=== PATIENT | female | born 1990 | race Caucasian/White ===

== ENCOUNTER → 2024-05-24 09:39 | Outpatient (REF) | payer OTHER, SELFPAY | LOC: PNTC 09:39 | PROVIDERS: ATTENDING PHYSICIAN Obstetrics & Gynecology | DX: Z36.4 Encounter for antenatal screening for fetal growth retardation (principal) | CPT/HCPCS: 59025; 76815; 76820 ==

== ENCOUNTER → 2024-05-31 09:53 | Outpatient (REF) | payer OTHER, SELFPAY | LOC: PNTC 09:53 | PROVIDERS: ATTENDING PHYSICIAN Obstetrics & Gynecology | DX: O36.5910 Maternal care for other known or suspected poor fetal growth, first trimester, not applicable or unspecified (principal) | CPT/HCPCS: 59025; 76816; 76820 ==

== ENCOUNTER → 2024-06-07 09:25 | Outpatient (REF) | payer OTHER, SELFPAY | LOC: PNTC 09:25 | PROVIDERS: ATTENDING PHYSICIAN Obstetrics & Gynecology | DX: O36.5920 Maternal care for other known or suspected poor fetal growth, second trimester, not applicable or unspecified (principal) | CPT/HCPCS: 59025; 76815; 76820 ==

== ENCOUNTER → 2024-06-13 15:35 | Outpatient (REF) | payer OTHER, SELFPAY | LOC: PNTC 15:35 | PROVIDERS: ATTENDING PHYSICIAN Obstetrics & Gynecology | DX: O36.5990 Maternal care for other known or suspected poor fetal growth, unspecified trimester, not applicable or unspecified (principal) | CPT/HCPCS: 59025; 76816; 76820 ==

== ENCOUNTER → 2024-06-21 07:31 | Outpatient (REF) | payer OTHER, SELFPAY | LOC: PNTC 07:31 | PROVIDERS: ATTENDING PHYSICIAN Obstetrics & Gynecology | DX: O36.5920 Maternal care for other known or suspected poor fetal growth, second trimester, not applicable or unspecified (principal) | CPT/HCPCS: 59025; 76815; 76820 ==

== ENCOUNTER → 2024-06-27 15:04 | Outpatient (REF) | payer OTHER, SELFPAY | LOC: PNTC 15:04 | PROVIDERS: ATTENDING PHYSICIAN Obstetrics & Gynecology | DX: O36.5990 Maternal care for other known or suspected poor fetal growth, unspecified trimester, not applicable or unspecified (principal) | CPT/HCPCS: 59025; 76816; 76820 ==

== ENCOUNTER → 2024-07-05 09:32 | Outpatient (REF) | payer OTHER, SELFPAY | LOC: PNTC 09:32 | PROVIDERS: ATTENDING PHYSICIAN Obstetrics & Gynecology | DX: O36.5990 Maternal care for other known or suspected poor fetal growth, unspecified trimester, not applicable or unspecified (principal); O09.519 Supervision of elderly primigravida, unspecified trimester | CPT/HCPCS: 59025; 76815; 76820 ==

== ENCOUNTER → 2024-07-12 09:01 | Outpatient (REF) | payer OTHER, SELFPAY | LOC: PNTC 09:01 | PROVIDERS: ATTENDING PHYSICIAN Obstetrics & Gynecology | DX: O36.5930 Maternal care for other known or suspected poor fetal growth, third trimester, not applicable or unspecified (principal); Z36.4 Encounter for antenatal screening for fetal growth retardation | CPT/HCPCS: 59025; 76816; 76820 ==

== ENCOUNTER → 2024-07-19 09:32 | Outpatient (REF) | payer OTHER, SELFPAY | LOC: PNTC 09:32 | PROVIDERS: ATTENDING PHYSICIAN Obstetrics & Gynecology | DX: O36.5920 Maternal care for other known or suspected poor fetal growth, second trimester, not applicable or unspecified (principal) | CPT/HCPCS: 59025; 76815; 76820 ==

== ENCOUNTER → 2024-07-26 08:35 | Outpatient (REF) | payer OTHER, SELFPAY | LOC: PNTC 08:35 | PROVIDERS: ATTENDING PHYSICIAN Obstetrics & Gynecology | DX: O36.5920 Maternal care for other known or suspected poor fetal growth, second trimester, not applicable or unspecified (principal) | CPT/HCPCS: 59025; 76816; 76820 ==

== ENCOUNTER → 2024-08-09 10:02 | Outpatient (REF) | payer OTHER, SELFPAY | LOC: PNTC 10:02 | PROVIDERS: ATTENDING PHYSICIAN Obstetrics & Gynecology | DX: O36.5110 Maternal care for known or suspected placental insufficiency, first trimester, not applicable or unspecified (principal) | CPT/HCPCS: 36415; 76816 ==

== ENCOUNTER 2024-08-20 19:26 | Inpatient (IN) | payer OTHER, SELFPAY ==
[2024-08-20 19:36] VITALS: BP 140/86; BMI 31.3
[2024-08-20 21:04] LABS: % Basophils 0.3 % (0-2); % Immature Granulocytes 0.7 % (0-0.5); % Lymphocytes 17.2 % (20.5-51.1); % Monocytes 6.1 % (1.7-9.3); % Neutrophils 74.7 % (42.2-75.2); Absolute Eosinophils 0.1 10^3/uL (0-0.7); Absolute Immature Granulocytes 0.1 10^3/uL (0-0.05); Absolute Monocytes 0.7 10^3/uL (0.1-0.6); Absolute Neutrophils 8.7 10^3/uL (1.4-6.5); Hematocrit 40.2 % (37.0-47.0); Hemoglobin 13.7 g/dL (12.0-16.0); Mean Corp Hgb Conc. 34.1 g/dL (33.0-37.0); Mean Corpuscular Hgb 31.1 pg (27.0-31.0); Mean Corpuscular Volume 91.2 fL (81.0-99.0); Mean Platelet Volume 10.6 fL (7.4-10.4); Nucleated Red Blood Cells % 0 %; Platelet Count 224 10^3/uL (130-400); Red Blood Cell Count 4.41 10^6/uL (4.20-5.40); White Blood Cell Count 11.6 10^3/uL (4.8-10.8)
[2024-08-20 21:23] LABS: ALT (SGPT) 17 U/L (0-35); AST (SGOT) 21 U/L (14-36); Albumin 3.7 g/dl (3.5-5.0); Alkaline Phosphatase 129 U/L (38-126); Blood Urea Nitrogen 11 mg/dl (7-17); Calcium 10.2 mg/dl (8.4-10.2); Carbon Dioxide 23 mmol/L (22-30); Chloride 102 mmol/L (98-107); Estimated Creatinine Clearance > 125 ml/min; Glucose 70 mg/dl (70-99); Potassium 4.3 mmol/L (3.5-5.1); Sodium 135 mmol/L (135-145); Total Bilirubin 0.3 mg/dl (0.2-1.3); Total Protein 6.4 g/dl (6.3-8.2); eGFR > 60.00
[2024-08-20] MEDS: CYTOTEC 25 MICROGRAM VAG (21:47)
[2024-08-20] MEDS: TUMS CHEWABLE TABLET 400 MG PO (22:27)
[2024-08-21] MEDS: CYTOTEC 50 MICROGRAM PO ×2 (02:20→06:33)
[2024-08-21] MEDS: LR 1000 IV ×2 (08:45→10:01)
[2024-08-21] MEDS: TUMS CHEWABLE TABLET 400 MG PO (08:48)
[2024-08-21] MEDS: CYTOTEC PO ×2 (10:01→15:19)
[2024-08-21] MEDS: PITOCIN 30 UNITS/NSS 500 ML IV ×2 (10:17→15:19)
[2024-08-21] MEDS: SUBLIMAZE 100 MCG EPIDURAL (11:33)
[2024-08-21] MEDS: FENTANYL/BUPIVACAINE 100 EPIDURAL (11:34)
[2024-08-22] MEDS: MOTRIN 600 MG PO ×2 (03:54→12:29)
[2024-08-22] MEDS: TYLENOL 650 MG PO (03:55)
--- NOTE | 2024-08-22 04:36 | DOWNTIME ---
There was a [employer] Downtime on 08/22/2024 from 0100 to 08/22/2023 at 0205 . Downtime documentation of patient's care, including medication administrations, has been reconciled in the electronic record per guidelines. Refer to the
patient's paper chart under the miscellaneous tab to see printed paper medication records and downtime forms.
[2024-08-22 04:48] LABS: Hemoglobin 12.3 g/dL (12.0-16.0)
[2024-08-22] MEDS: PRENATAL PLUS 1 TABLET PO (12:29)
[2024-08-22] MEDS: SENOKOT-S 1 TABLET PO (12:29)
[2024-08-24 15:06] LABS: Syphilis/T. pallidum Ab Reflex Negative (Negative)
== END 2024-08-22 17:18 | disposition home or self-care (01) | DRG 807 ==
LOC: LDRP 19:26
PROVIDERS: Obstetrics & Gynecology; ADMITTING PHYSICIAN Obstetrics & Gynecology
PROC: 3E0P7VZ Introduction of Hormone into Female Reproductive, Via Natural or Artificial Opening (ICD-10-PCS; 2024-08-20)
PROC: 10E0XZZ Delivery of Products of Conception, External Approach (ICD-10-PCS; 2024-08-21)
PROC: 0UQMXZZ Repair Vulva, External Approach (ICD-10-PCS; 2024-08-21)
PROC: 4A1HXCZ Monitoring of Products of Conception, Cardiac Rate, External Approach (ICD-10-PCS; 2024-08-21)
PROC: 0KQM0ZZ Repair Perineum Muscle, Open Approach (ICD-10-PCS; 2024-08-21)
DX: O48.0 Post-term pregnancy (principal); Z37.0 Single live birth; O70.1 Second degree perineal laceration during delivery; Z3A.40 40 weeks gestation of pregnancy
CPT/HCPCS: 88307; 80053; 85014; 85018; 85025; 86780; 86850; 86900; 86901